=== PATIENT | male | born 1940 | race Caucasian/White ===

== ENCOUNTER 2017-11-25 08:17 | Day surgery (SDC) | payer MEDICARE, OTHER, SELFPAY ==
--- NOTE | 2017-11-20 16:42 | PM.OP.1 ---
Procedure & Clinicians Procedure: Date of service: November 26, 2007 Preoperative diagnoses: 1. Left nuclear sclerotic Cataract 2. Sleep Apnea 3.Diabetes with retinopathy, mild and stable 4. Amiodorone verticulata 5. Atrial fibrillation on Eloquis. Postoperative diagnoses: 1. Cataract status post phacoemulsification with posterior chamber intraocular lens implant. Procedure: Phacoemulsification with posterior chamber intraocular lens implant Surgeon: Mildred Galvan MD Complications: None Specimen: None Implant: +20.5 Blood loss: None Anesthesia: Retrobulbar with monitored standby Anesthesiologist: Yemi Peterson Description of procedure: Patient is a male year old with decreased vision due to cataract which is affecting activities of daily living. He wants surgery to improve vision. He has taken to the operating room and given IV sedation. A retrobulbar block insert consisting of 6 cc of 2% xylocaine without epinephrine mixed half and half with 0.5% Marcaine with 1 cc of hyaluronidase added is placed between the medial and lateral 1/3 of the inferior orbital rim. Lid akinesia is obtain with 1% xylocaine with epinephrine infiltrated along the lid margin. The eye is manually massaged for 30 sec, prepped using Betadine solution, and draped in the usual sterile fashion. Patient has significant breath excursions due to sleep apnea but was able to tolerate retrobulbar anesthesia. Temporal approach was made, a 1 mm side-port incision was made at the 7:30 position. Phenylephrine 1.5% mixed with 1% xylocaine 0.2 cc was placed into the anterior chamber. Viscoat followed by Ryan was then placed. A 2.6 mm clear incision with a 2.6 mm blade was placed at the 170 degree meridian. A 360 degree capsulorrhexis style capsulotomy was then performed with a cystitome needle on a Healon. Hydrodelineation and hydrodissection were performed. The phacoemulsification unit is introduced, and sculpting notice used to groove the central lens. It is then removed in chopping mode. Epi nucleus is removed with epinuclear mode and irrigation aspiration was used to remove the peripheral cortex. The posterior capsule is polished. The intraocular lens is selected, inspected, power confirmed, and placed in the posterior chamber. The pupil was constricted. The wound was stromally hydrated and tested for leaks, there was none and was left sutureless. Vigamox 0.1 cc was placed into the anterior chamber. Kenalog 0.2 cc was placed in the superior subconjunctival space. A drop of antibiotic and was placed and the eye was patched and shielded. The patient was stable and returned to the recovery room in excellent condition. Dictated by: Mildred Galvan MD Copy to: [facility]
--- NOTE | 2017-11-20 16:44 | PM.PREOP ---
Pre-operative Note Interval Note Pre-op Check: History & Physical Reviewed by Physician
[2017-11-25 09:19] VITALS: BP 126/76; PULSE 100; RESP 16; TEMP 36.4; BMI 34.9
[2017-11-25] MEDS: PROPARACAINE 0.5% OPHTH SOL 2 DROPS EYE-OP (09:20)
[2017-11-25] MEDS: CATARACT EYE COMPOUND (10 DROPS/SYRINGE) 3 DROPS EYE-OP (09:22)
[2017-11-25] MEDS: CHONDROIDTIN/SOD HYALURONATE 1.05 ML SYRINGE INTRAOCULA (10:17)
[2017-11-25] MEDS: CARBACHOL 1.5 ML VIAL INJ (10:17)
[2017-11-25] MEDS: BALANCED SALT IRRIG SOLN NO.2 15 ML IRRIG.SOLN IRR (10:17)
[2017-11-25] MEDS: OFLOXACIN 0.3% OPHTH 5 ML 2 DROPS EYE-LEFT (10:18)
[2017-11-25] MEDS: MOXIFLOXACIN OPHTH DROPS 3 ML BOTTLE 2 DROPS INJ (10:18)
[2017-11-25] MEDS: NEOMYCIN/POLY/DEX OPHTH OINT 1 APPLIC EYE-LEFT (10:18)
[2017-11-25] MEDS: LIDOCAINE 2% 4 ML, BUPIVACAINE 0.5% (PF) 4 ML, HYALURONIDASE 150 UNIT INJ (10:19)
[2017-11-25] MEDS: TRYPAN BLUE 0.5 ML SYRINGE INJ (10:19)
[2017-11-25] MEDS: TRIAMCINOLONE 50 MG/5 ML VIAL INJ (10:19)
[2017-11-25] MEDS: BALANCED SALT IRRIG SOLN NO.2 500 ML, EPINEPHrine 1 MG IRR (10:19)
[2017-11-25] MEDS: HYALURONATE SODIUM 10 MG/ML SYRINGE INJ (10:33)
[2017-11-25 10:47] VITALS: BP 137/74; PULSE 67; RESP 15; TEMP 36.5; O2SAT 95
== END 2017-11-25 11:05 | disposition home or self-care (01) ==
LOC: OR 08:19
PROVIDERS: PCP Family Medicine; Visit Provider Ophthalmology
DX: H25.12 Age-related nuclear cataract, left eye (principal); E11.3299 Type 2 diabetes mellitus with mild nonproliferative diabetic retinopathy without macular edema, unspecified eye; G47.33 Obstructive sleep apnea (adult) (pediatric); I48.91 Unspecified atrial fibrillation; Z79.01 Long term (current) use of anticoagulants; H18.00 Unspecified corneal deposit; Z79.4 Long term (current) use of insulin
CPT/HCPCS: J0171; J2704; J3301; J3470

== ENCOUNTER 2017-12-02 12:23 | Outpatient (CLI) | payer MEDICARE, OTHER, SELFPAY ==
--- NOTE | 2017-12-02 12:27 | DI.RAD.S_ITS ---
PROCEDURE: PAIN L INTERLAMINAR/CAUDAL INJ INDICATIONS: 77-year-old male status post L5-S1 interbody fusion, with spinal stenosis. FINDINGS: Fluoroscopic spot filming was performed to verify placement of spinal needles at the posterior L5-S1 level(s), as labeled on the films. Appropriate location(s) of the needle tip(s) was confirmed by injection of iodinated contrast. IMPRESSION: Fluoroscopic guidance for L5-S1 epidural steroid injection. Dictated by: Aaron Weir M.D. on 12/02/2017 at 15:10 Approved by: Aaron Weir M.D. on 12/02/2017 at 15:10
[2017-12-02 12:40] VITALS: BP 150/64; PULSE 51; RESP 16; TEMP 36.1; O2SAT 97
--- NOTE | 2017-12-02 13:07 | P.PCN_ITS ---
Procedures Date/Time Date of procedure: 12/02/17 Time of procedure: 13:25 General Procedure description: PROVIDER: Franki Haque DO Operative Note PREOP DIAGNOSIS 1. HNP WITH RADICULAR FEATURES, 2. MULTILEVEL CENTRAL STENOSIS, POST OP DIAGNOSIS 1. HNP WITH RADICULAR FEATURES, 2. MULTILEVEL CENTRAL STENOSIS PROCEDURES 1. FLUORSCOPICALLY GUIDED CONTRAST CONTROLLED INTERLAMINAR EPIDURAL STEROID INJECTION -L5/S1 TL MAL[facility] PHYSICIAN: Franki Haque DO INDICATIONs: Nathaly is referred by Dr. Quach for treatment of Bilateral Foraminal Stenosis R>L LE symptoms. FINDINGS Multilevel Central Spinal Stenosis with Nerve Root Compression DESCRIPTION OF PROCEDURE Fluoroscopically guided, contrast-controlled L5/S1 translaminar epidural steroid injection. Following denial of allergy and review of potential side effects and complications, including, but not necessarily limited to, infection, allergic reaction, local tissue breakdown, temporary as well as permanent nerve injury, paralysis, stroke and possible , the patient indicated that the patient understood and agreed to proceed. An informed consent document was signed by the patient, witnessed by a nurse, and placed in the patient's chart. Additionally, other treatment options including modalities, medications, and physical therapy were reviewed with the patient. In the prone position, following sterile prep and drape of the lumbar region, the L5/S1 translaminar space was identified fluoroscopically. The skin was anesthetized via a 25-gauge, 1.5-inch needle with 1% lidocaine solution. At this point, a 22-gauge short bevel spinal needle was atraumatically introduced and advanced under fluoroscopic guidance into the region of the L5/S1 translaminar space. Depth was confirmed on lateral view. Radiological data, including multiple fluoroscopic views of the lumbar spine, reveal a spinal needle at the L5/S1 translaminar space. Lateral views then show placement of the needle in the epidural space. Subsequent views show contrast material flowing superiorly and inferiorly in the epidural space. No vascular or intrathecal uptake is observed. At this point, using loss of resistance technique with saline and air, the epidural space was entered. This was confirmed following negative aspiration with injection of approximately 1.5 cc of Isovue 200, showing excellent epidural flow without vascular or intrathecal uptake. At this point, 1 cc of 1 % lidocaine solution combined with 3 cc or 20 mg of dexamethasone and 80mg Depo medrol was injected without incident. The patient was then transferred to the recovery area where they were observed for an appropriate period of time after the injection. The patient reported a VAS score of 6 prior to the procedure and a post-procedure VAS of 0. Total Fluoroscopy Time: 11.8 seconds Total Conscious Sedation Time: 24min POST OP INSTRUCTIONS The patient was provided a Pain Log to continue to record their response to the target-specific procedure prior to follow-up visit with their referring physician. Additionally, specific post-injection care instructions and a contact number to our office were provided if concerns arise regarding possible complications associated with the procedure are suspected. Franki Haque, Complications: none
[2017-12-02 13:10] VITALS: BP 155/86; PULSE 58; RESP 16; O2SAT 95
[2017-12-02] MEDS: BUPIVACAINE 0.25% (PF) 30 ML VIAL INJ (13:13)
[2017-12-02] MEDS: DEXAMETHASONE 10 MG/ML VIAL 20 MG INJ (13:13)
[2017-12-02] MEDS: IOPAMIDOL 15 ML VIAL 3 ML INJ (13:13)
[2017-12-02] MEDS: methylPREDNISolone acetate 80 MG/ML VIAL INJ (13:13)
[2017-12-02 13:17] VITALS: BP 185/102; PULSE 73; RESP 18; O2SAT 95
[2017-12-02 13:20] VITALS: BP 170/104; PULSE 74; RESP 18; O2SAT 95
[2017-12-02 13:30] VITALS: BP 147/64; PULSE 58; RESP 18; O2SAT 94
== END 2017-12-02 13:45 | disposition home or self-care (01) ==
LOC: RAD 12:26
PROVIDERS: PCP Family Medicine; Visit Provider Physical Medicine & Rehabilitation
DX: M48.061 Spinal stenosis, lumbar region without neurogenic claudication (principal); M51.16 Intervertebral disc disorders with radiculopathy, lumbar region; I48.91 Unspecified atrial fibrillation; Z98.1 Arthrodesis status
CPT/HCPCS: 62323; J1040; J1100; J2250

== ENCOUNTER 2018-01-19 10:01 | Outpatient (CLI) | payer MEDICARE, OTHER, SELFPAY ==
--- NOTE | 2018-01-19 10:02 | DI.RAD.S_ITS ---
PROCEDURE: PAIN L/SI FACET INJ/BLK 1STL INDICATIONS: Lumbosacral spondylosis FINDINGS: Fluoroscopic spot filming was performed to verify placement of spinal needles at the bilateral L4-5 and L5-S1 facet joint margin level(s), as labeled on the films. Appropriate location(s) of the needle tip(s) was confirmed by injection of iodinated contrast. IMPRESSION: Successful right and left L4-5 and L5-S1 bilateral facet epidural injection. Dictated by: Darek Rizvi M.D. on 01/19/2018 at 14:20 Approved by: Darek Rizvi M.D. on 01/19/2018 at 14:22
[2018-01-19 10:12] VITALS: BP 132/78; PULSE 75; RESP 16; TEMP 36.2; O2SAT 97
[2018-01-19 10:35] VITALS: BP 146/86; PULSE 85; RESP 20; O2SAT 94
[2018-01-19 10:41] VITALS: BP 146/82; PULSE 81; RESP 22; O2SAT 96
[2018-01-19 10:45] VITALS: BP 130/94; PULSE 87; RESP 23; O2SAT 93
[2018-01-19 10:52] VITALS: BP 142/91; PULSE 83; RESP 24; O2SAT 92
--- NOTE | 2018-01-19 10:59 | PM.PROC.1 ---
Procedures Date/Time Date of procedure: 01/19/18 Time of procedure: 10:59 General Procedure description: PREOP DIAGNOSIS 1. FACET ARTHROPATHY 2. AXIAL LBP 3. MULTILEVEL DDD POST OP DIAGNOSIS 1. FACET ARTHROPATHY 2. AXIAL LBP 3. MULTILEVEL DDD PROCEDURES 1. FLUORSCOPICALLY GUIDED CONTRAST CONTROLLED FACET JOINT INJECTIONS BILATERAL L4/5, L5/S1 PHYSICIAN: Franki Haque, DO INDICATIONS [place] is referred by Dr. Quach for trestment of Axial LBP FINDINGS Multilevel Facet Arthropathy with Clinically significant axial LBP DESCRIPTION OF PROCEDURE Fluoroscopically guided, contrast-controlled bilateral L4/5, L5/S1 facet joint injections. Following denial of allergy and review of potential side effects and complications, including, but not necessarily limited to, infection, allergic reaction, local tissue breakdown, stroke, temporary or permanent nerve injury, paralysis, and possible , the patient indicated that the patient understood and agreed to proceed. An informed consent document was signed by the patient, witnessed by a nurse, and placed in the patient's chart. Additionally, other treatment options including medications, modalities, and physical therapy were reviewed with the patient. In the prone position, following sterile prep and drape of the lumbar region, the posterior aspect of the L4/5, L5/S1 facet joints were identified fluoroscopically. The skin was anesthetized via a 25-gauge 1.5-inch needle with 1% lidocaine solution into the corresponding facet joints. At this point, a 22-gauge 3.5-inch spinal needle was atraumatically introduced and advanced under fluoroscopic guidance into the corresponding facet joints. Following negative aspiration, injections of approximately 0.2-cc of Isovue 200 confirmed interarticular placement without vascular uptake. The identical procedure was then performed at the L4/5, L5/S1 facet joints on the left. Radiological data, including multiple fluoroscopic views of the lumbosacral spine, reveal a spinal needle at the L4/5, L5/S1 facet joints bilaterally. Subsequent views show flow of contrast material both superiorly and inferiorly within the joint space without vascular or intrathecal uptake. At this point, a total of 0.5 cc including a mixture of 0.25 cc Marcaine and 0.25 cc betamethasone was injected without complication into each of the corresponding facet joints. The patient was then transferred to the recovery area where they were observed for an appropriate period of time after the injection. The patient reported a VAS score of 7 prior to the procedure and a post-procedure VAS of 0. Total Fluoroscopy Time: 20.3 seconds Total Conscious Sedation Time: 24min POST OP INSTRUCTIONS The patient was provided a Pain Log to continue to record their response to the target-specific procedure prior to follow-up visit with their referring physician. Additionally, specific post-injection care instructions and a contact number to our office were provided if concerns arise regarding possible complications associated with the procedure are suspected. Franki Haque DO Complications: none
[2018-01-19 11:07] VITALS: BP 111/80; PULSE 61; RESP 18; O2SAT 96
[2018-01-19] MEDS: BETAMETHASONE 30 MG/5 ML MDV 12 MG INJ (11:08)
[2018-01-19] MEDS: LIDOCAINE 1% 20 ML INJ 10 ML INJ (11:09)
[2018-01-19] MEDS: IOPAMIDOL 15 ML VIAL 3 ML INJ (11:09)
[2018-01-19] MEDS: BUPIVACAINE 0.5% (PF) VIAL 2 ML INJ (11:09)
--- NOTE | 2018-01-20 15:57 | PC.NURSE ---
Follow up Call made but pt was lying down resting. I spoke to his and she said He was doing better but was sore last night. He continues to fill out his pain log and denies any concerns.
== END 2018-01-19 11:33 | disposition home or self-care (01) ==
LOC: RAD 10:02
PROVIDERS: PCP Family Medicine; Visit Provider Physical Medicine & Rehabilitation
DX: M47.816 Spondylosis without myelopathy or radiculopathy, lumbar region (principal); M47.817 Spondylosis without myelopathy or radiculopathy, lumbosacral region; M51.36 Other intervertebral disc degeneration, lumbar region; M51.37 Other intervertebral disc degeneration, lumbosacral region; M96.1 Postlaminectomy syndrome, not elsewhere classified
CPT/HCPCS: 64493; 64494; J0702

== ENCOUNTER → 2019-12-30 10:55 | Outpatient (CLI) | payer MEDICARE, OTHER, SELFPAY ==
--- NOTE | 2019-12-30 | DI.CT.S_ITS ---
PROCEDURE: CT LUMBAR SPINE WO CON INDICATIONS: Arthrodesis status TECHNIQUE: Noncontrast 3 mm thick sections acquired from the T12 level to the sacrum. Sagittal and coronal reformats were constructed. For radiation dose reduction, the following was used: automated exposure control. COMPARISON: [facility], MR, L-SPINE WITH AND WITHOUT CONTR, 01/16/2012, 16:44. [facility], CR, L-SPINE 2-3 VIEWS, 07/27/2012, 14:46. [facility], CT, L-SPINE WITHOUT CONTRAST, 12/30/2013, 9:56. [facility], CT, L-SPINE WITHOUT CONTRAST, 07/21/2017, 11:42. FINDINGS: Image quality: Excellent. Bones: No acute vertebral body compression fractures. No suspicious lytic or blastic bony lesions. Central spinal caliber is of normal overall caliber. No pars defects. Mild dextroconvex scoliotic curvature is seen. No focal AP alignment abnormality is seen. T11-T12: Bridging anterior and right-sided osteophytes are seen. Mild loss of disc height is seen. No significant neural foraminal or central canal narrowing can be seen. T12-L1: No significant abnormality is seen. Bridging anterior osteophytes are seen on the right. L1-L2: The disc height is well-preserved. Mild disc bulge is seen. The right transverse process is unfused. No significant neural foraminal or central canal narrowing can be seen. L2-L3: The disc height is well preserved. Bridging anterior osteophytes are seen on the left. Mild disc bulge is seen, which is eccentric to the left. There is mild to moderate right-sided and moderate left-sided neural foraminal narrowing seen. Mild central canal narrowing is seen. These degenerative changes are slightly progressed compared to the prior. L3-L4: The disc height is relatively well-preserved. Moderate disc bulge is seen, which is eccentric to the left. Bridging endplate osteophytes are seen on the left. No significant facet hypertrophy is seen. There is moderate bilateral neural foraminal narrowing seen. Moderate central canal narrowing is seen. Minimal progression compared to 2018. L4-L5: The disc height is well preserved. Moderate disc bulge is seen, which is eccentric to the right. Bridging endplate osteophytes are seen on the right side. Mild facet joint hypertrophy is seen. Moderate bilateral neural foraminal narrowing is seen, right worse than left. Moderate central canal narrowing is seen. There has been progression compared to 2018. L5-S1: There is a disc spacer seen at this level. Screw holes are again seen posteriorly and on the right. Bone grafting material is seen posteriorly and on the right. There has been removal of portions of the posterior elements. There is prominent right-sided and mild to moderate left-sided facet hypertrophy seen. There is moderate to severe bilateral neural foraminal narrowing seen, right worse than left. No significant central canal narrowing is seen. When comparison is made with the prior examination, these findings are similar. There is a sacral stimulator seen on the right. Soft tissues: No retroperitoneal masses or hematomas. Visualized aorta is normal in caliber. Atherosclerotic calcification is noted. Apparent bladder catheter is partially seen. IMPRESSION: Stable L5-S1 postoperative change. Multiple levels of degenerative change are seen, which have progressed at L3-L4 and L4-L5 compared to 2018. Right-sided sacral stimulator noted. Dictated by: Maulik Rodríguez M.D. on 12/30/2019 at 11:08 Approved by: Maulik Rodríguez M.D. on 12/30/2019 at 11:18
== END ==
PROVIDERS: PCP Family Medicine; Referring Provider Orthopaedic Surgery; Visit Provider Orthopaedic Surgery
DX: M47.816 Spondylosis without myelopathy or radiculopathy, lumbar region (principal); Z98.1 Arthrodesis status; Z96.82 Presence of neurostimulator
CPT/HCPCS: 72131